=== PATIENT | female | born 1950 | race Caucasian/White ===

== ENCOUNTER 2019-02-03 05:39 | Inpatient (IN) | payer MEDICARE, BC ==
[2019-01-28 10:43] VITALS: BMI 21.0
[~2019-02-03] VITALS: Ht 162.6 cm; Wt 55.7 kg
[2019-02-03] VITALS (33 sets, daily range): BP systolic 109–172; BP diastolic 55–95; PULSE 56–88; RESP 10–26; Ht 162.6 cm; Wt 55.7 kg
[~2019-02-03 05:39] MED LIST: ATOR20TA38 PO; LANS30CA47 PO
[2019-02-03] MEDS ORDERED: LACTATED RINGER'S 1,000 ML IV* ONE (06:00)
[2019-02-03] MEDS ORDERED: CEFAZOLIN 2 GM/50 ML (PMX) 50 ML IVPB SCH (06:00)
[2019-02-03] MEDS ORDERED: PROPOFOL 200 MG INJ ONE (07:00)
[2019-02-03] MEDS ORDERED: LIDOCAINE 2% (SDV) 5 ML INJ ONE (07:00)
--- NOTE | 2019-02-03 07:02 | HPN ---
Date/Time of Note Date/Time of Note DATE: 02/03/19 TIME: 07:02 Interval H&P Admission Note Pt. seen H&P reviewed: No system changes MARION MEDRANO MD Feb 03, 2019 07:02
[2019-02-03] MEDS ORDERED: BUPIVACAINE 0.25% (MPF) 30 ML INJ ONE (07:03)
[2019-02-03] MEDS ORDERED: THROMBIN 5000 UNIT VIAL ONE (07:03)
[2019-02-03] MEDS ORDERED: GELATIN SIZE 100 SPONGE ONE (07:03)
[2019-02-03] MEDS ORDERED: POLYMYXIN/BACITRACIN 1L IRRIG ONE (07:03)
--- NOTE | 2019-02-03 07:25 | PREAC ---
Date/Time of Note Date/Time of Note DATE: 02/03/19 TIME: 07:23 Anesthesia Eval and Record Evaluation Time Pre-Procedure Interview DATE: 02/03/19 TIME: 07:23 Age 68 Sex female NPO: 8 hrs Preoperative diagnosis lumbar disc disease Planned procedure l3 to l5 lumbar discectomy, removal hardware Past Medical History Past Medical History: Includes Cardio: HTN, Dyslipidemia Endo: Hypothyroid Surgery & Anesthesia Issues No known issue Meds Anticoagulation: No Beta Clifton within 24 hr: No Reason Beta Clifton not given: Pt. not on B-Clifton Reported Medications Lansoprazole* (Prevacid*) 30 Mg Capsule.dr, 40 MG PO DAILY, CAP 01/28/19 Atorvastatin Calcium* (Atorvastatin Calcium*) 20 Mg Tablet, 20 MG PO QHS, #30 TAB 01/28/19 Current Medications Cefazolin Sodium/ Dextrose 50 ml @ 100 mls/hr PRE-OP IVPB Last administered on 02/03/19at 06:43; Admin Dose 100 MLS/HR; Start 02/03/19 at 06:00; Stop 02/03/19 at 15:00 Lactated Ringer's 1,000 ml @ 20 mls/hr Q24H ONCE IV* Last administered on 02/03/19at 06:44; Admin Dose 20 MLS/HR; Start 02/03/19 at 06:00; Stop 02/04/19 at 05:59 Meds reviewed: Yes Allergies Coded Allergies: No Known Drug Allergy (Verified Allergy, Unknown, 01/28/19) Allergies Reviewed: Yes Labs/Studies Labs Reviewed: Reviewed by anesthesiologist Blood Bank Test 02/03/19 05:39 Blood Product Summary Counts test: N/A Studies: ECG, CXR Pre-procedure Exam Last vitals Vital Signs Date Temp Pulse Resp B/P (MAP) Pulse Ox O2 O2 Flow FiO2 Time Delivery Rate 02/03/19 98.1 63 18 148/78 100 Room Air 06:18 (101) Airway: Adequate mouth opening, Adequate thyromental dist Mallampati: Mallampati I Teeth: Normal Lung: Normal Heart: Normal ASA Physical Status ASA physical status: 2 Emergency: None Planned Anesthetic General/MAC: ETT Planned Pain Management Parenteral pain med Pre-operative Attestations Prior to commencing anesthesia and surgery, the patient was re-evaluated, there was verification of: *The patient's identity *The results of appropriate recent lab work and preoperative vital signs *The above evaluation not changing prior to induction *Anesthetic plan, risk benefits, alternative and complications discussed with patient/family; questions answered; patient/family understands, accepts and wishes to proceed. KELVIN HOWARD Feb 03, 2019 07:25
[2019-02-03] MEDS ORDERED: PHENYLephrine (100 MCG/ML) 5ML SYG ONE (07:28)
[2019-02-03] MEDS ORDERED: DEXAMETHASONE 4 MG/ML 5 ML INJ ONE (07:39)
[2019-02-03] MEDS ORDERED: morphine 10 MG INJ ONE (08:04)
[2019-02-03] MEDS ORDERED: ONDANSETRON 4 MG INJ ONE (09:41)
[2019-02-03] MEDS ORDERED: GLYCOPYRROLATE 0.4 MG INJ ONE (10:09)
[2019-02-03] MEDS ORDERED: NEOSTIGMINE 3 MG/3 ML SYRINGE ONE (10:09)
[2019-02-03] MEDS ORDERED: HYDROmorphONE 1 MG/5 ML IV SYRINGE IV ONE (10:16)
--- NOTE | 2019-02-03 10:18 | PAC ---
Date/Time of Note Date/Time of Note DATE: 02/03/19 TIME: 10:18 Post-Anesthesia Notes Post-Anesthesia Note Last documented vital signs Vital Signs Date Temp Pulse Resp B/P (MAP) Pulse Ox O2 O2 Flow FiO2 Time Delivery Rate 02/03/19 98.1 63 18 148/78 100 Room Air 1018 (101) Activity: WNL Respiratory function: WNL Cardiovascular function: WNL Mental status: Baseline Pain reasonably controlled: Yes Hydration appropriate: Yes Nausea/Vomiting absent: Yes KELVIN HOWARD Feb 03, 2019 10:18
[2019-02-03] MEDS ORDERED: LABETALOL HCL 20MG INJ IV PRN (10:30)
[2019-02-03] MEDS ORDERED: MEPERIDINE 25 MG INJ IV PRN (10:30)
[2019-02-03] MEDS ORDERED: HYDROmorphONE 1 MG/5 ML IV SYRINGE IV PRN ×2 (10:30)
[2019-02-03] MEDS ORDERED: hydrALAzine 20 MG INJ IV PRN (10:30)
[2019-02-03] MEDS ORDERED: METOCLOPRAMIDE 10 MG INJ IV PRN (10:30)
[2019-02-03] MEDS ORDERED: MIDAZOLAM 1 MG/ML 2 ML INJ IV PRN (10:30)
[2019-02-03] MEDS ORDERED: OXYCODONE/ACETAMINOPHEN (5/325) TAB PO PRN ×2 (10:30)
[2019-02-03] MEDS ORDERED: DIPHENHYDRAMINE 50 MG INJ IV PRN (10:30)
[2019-02-03] MEDS ORDERED: EPHEDrine SULFATE 50 MG/5 ML SYG IV PRN (10:30)
[2019-02-03] MEDS ORDERED: FENTAnyl 50 MCG/ML VIAL IV PRN ×3 (10:30)
[2019-02-03] MEDS ORDERED: KETOROLAC 30 MG INJ IV PRN (10:30)
[2019-02-03] MEDS ORDERED: ONDANSETRON 4 MG INJ IV PRN ×2 (10:30→11:00)
[2019-02-03] MEDS ORDERED: ALBUTEROL 0.083% (NEB) 2.5 MG/3 ML AMP HHN PRN (10:30)
[2019-02-03] MEDS: DEXTROSE 5%-0.45% NACL 1,000 ML IV SCH ×3 (10:33→23:41)
[2019-02-03] MEDS: HYDROmorphONE 1 MG/5 ML IV SYRINGE IV PRN ×2 (10:38→11:01)
--- NOTE | 2019-02-03 10:44 | SIPON ---
Date/Time of Note Date/Time of Note DATE: 02/03/19 TIME: 10:39 Operative Report Preoperative Diagnosis Spinal Stenosis L3 Status post fusion L4-S1 with retained hardware Postoperative Diagnosis Same Operation/Procedure Performed Central decompressive laminectomy L3 Exploration of fusion L4-S1 bilaterally Removal of hardware L4-S1 bilaterally Revision of scar 12cm Lateral x-ray Intra-op nerve monitoring (3hrs) Surgeon see signature line video library assistant Caridad Townsend PA-C Anesthesia: general Estimated blood loss: 10 - 50 ml's Transfusion Required none Specimen Spinous process L3 Hardware (six pedicle screws, six locking caps, two rods) Grafts/Implants none Complications none MARION MEDRANO MD Feb 03, 2019 10:44
[2019-02-03] MEDS ORDERED: ACETAMINOPHEN 325 MG TAB PO PRN (11:00)
[2019-02-03] MEDS ORDERED: HYDROCODONE/APAP (5/325) TAB PO PRN ×2 (11:00)
[2019-02-03] MEDS ORDERED: DIAZEPAM 5 MG/ML SYG IM PRN (11:00)
[2019-02-03] MEDS ORDERED: NACL 0.9% 3 ML SYG IV SCH (11:00)
[2019-02-03] MEDS ORDERED: TRIMETHOBENZAMIDE 100 MG/ML VIAL IM PRN (11:00)
[2019-02-03] MEDS ORDERED: CEPASTAT LOZENGE MT PRN (11:00)
[2019-02-03] MEDS ORDERED: BETHANECHOL 25 MG TAB PO PRN (11:00)
[2019-02-03] MEDS ORDERED: DIPHENHYDRAMINE 50 MG CAP PO PRN (11:00)
[2019-02-03] MEDS ORDERED: HYDROmorphONE 0.2 MG/ML PCA IV SCH (11:00)
[2019-02-03] MEDS ORDERED: PROCHLORPERAZINE 10 MG TAB PO PRN (11:00)
[2019-02-03] MEDS ORDERED: AL HYDROX/MG HYDROX/SIMETH 30 ML CUP PO PRN (11:00)
[2019-02-03] MEDS ORDERED: NALOXONE (0.4 MG/ML) INJ IV PRN (11:00)
--- NOTE | 2019-02-03 11:16 | OPR ---
DATE OF OPERATION: 02/03/2019 PREOPERATIVE DIAGNOSIS: 1. Severe spinal stenosis at L3. 2. Status post lumbar fusion from L4 to the sacrum with bilateral pedicle screws and rods from L4 to the sacrum. POSTOPERATIVE DIAGNOSES: 1. Severe spinal stenosis at L3. 2. Status post lumbar fusion from L4 to the sacrum with bilateral pedicle screws and rods from L4 to the sacrum. OPERATIONS PERFORMED: 1. Central decompressive laminectomy at L3. 2. Exploration of spinal fusion L4 to the sacrum bilaterally. 3. Excision of the pedicle screws and rods from L4 to the sacrum bilaterally. 4. Revision of scar (12 cm). 5. Lateral localized lumbar radiograph. 6. Intraoperative nerve monitoring (3 hours). SURGEON: Smith Berger M.D. METAL SPRAYER PRODUCTION: Caridad Townsend PA-C. ANESTHESIA: General endotracheal. ANESTHESIOLOGIST: Dr. Welsh. ESTIMATED BLOOD LOSS: 25 to 30 mL. DRAINS: Two medium Hemovac drains employed. COMPLICATIONS: None. PERTINENT HISTORY AND PHYSICAL: This is a 68-year-old female who underwent an instrumented spinal fu ene by the undersigned from L4 to the sacrum many years ago and has done well over the years. Recen tly, she has had recurrent back pain with some radiation of pain into her lower extremities, which giles s been unrelieved by conservative management. She has undergone a number of diagnostic studies inclu ding MRI of the lumbar spine, which demonstrated severe stenosis at L3-L4, and retained hardware from L4 to the sacrum, which was tender to palpation. Treatment options discussed with the patient, she elected to proceed with surgery. OPERATIVE FINDINGS AT SURGERY: The patient had severe stenosis at L3. The baseline intraoperative n erve monitoring revealed decrease in the L2 potentials of 10% bilaterally, the L3 potentials 40% bila terally, the L4 potential on the left was down 40%, the L4 potential on the right was down 20%, the L 5 potential on the left was down 20% and the L5 potential on the right was down 20%. These all retur alethea to normal at the completion of the surgery. OPERATIVE PROCEDURE: With the patient in supine position after satisfactory induction of general end otracheal anesthesia by Dr. Welsh, the patient was turned to the prone kneeling position onto the [facility] frame. All pressure points were carefully padded. Back was prepped and draped in usual sterile fashion. Athrombic pumps were applied to legs below the knees to prevent venous stasis during and a fter procedure. An indwelling Berrios catheter was also placed preoperative to facilitate bladder drai nage during and after procedure. A 12 cm incision was carried out midline through the previous scar and extended superiorly approximat francesca 3 cm. The superficial retractors were placed and hemostasis secured with electrocautery. Throug hout the procedure, copious amounts of antibacterial irrigating solution used to periodically irrigat e the wound. The skin was infiltrated with 0.25% Marcaine without epinephrine for postoperative anal gesia. The spinous process of L3 was palpated and a subperiosteal dissection carried out at L3 bilat erally after the fascia was incised in the midline with a hot knife. Deep retractors were placed and deep hemostasis secured with electrocautery. A lateral lumbar radiograph was taken with a Jenna cl amp placed in what was felt to be the spinous process of L3. This was confirmed on the x-ray. The d issection was then carried distally, and the rods were exposed bilaterally with a hot knife. The Gel pi retractors were used to facilitate exposure. A Clarence right-angle bone rongeur was used to remov e the spinous process of L3 and a Leksell rongeur, Kerrison punches and curettes used to remove the r emaining lamina of L3. The operating microscope was then moved into place. A medial facetectomy and foraminotomy was accomplished at L3-L4 bilaterally using small hand osteotome, mallet, Kerrison punc hes and curettes. The ligamentum flavum was excised with sharp dissection. The epidural hemostasis was secured with bipolar electrocautery on low setting. At this point, the neural monitor confirmed that all of the initial nerve deficits had resolved. The Lanx screwdriver was then used to remove th e locking caps off of the top of the 6th pedicle screws at L4, L5 and S1 bilaterally. The rods were then pride loose, and sent to laboratory for pathologic study. The pedicle screws were then sequenti ally removed. The screws on the left were removed initially and then the screws on the right using t he Lanx screwdriver. No significant bleeding or CSF leak from the pedicle screw holes was identified . The wound was then closed in layers over 2 medium Hemovac drains, one below the fascia, one above the fascia, using #1 Stratafix suture in deep paralumbar musculature and deep fascia of back, 2-0 Str atafix sutures in subcutaneous tissue, and a 4-0 Vicryl subcuticular cosmetic closing suture on the s kin. Dermabond and sterile compressive dressings were applied. The patient tolerated procedure well , was then turned to the supine position onto her bed and extubated by Dr. Welsh. She was transported to the recovery room in a satisfactory condition. At the conclusion of the procedure, sponge, instr ument, and needle counts were all correct. NEED FOR ASSISTANT TO THE DIRECTOR: During this spinal surgical procedure, my observation assistant was used to retract and protect the spinal nerves and dural sac. My observation assistant also employed the suction catheters to ev acuate blood from the surgical field to improve visualization of the neural structures. The assistan t was medically necessary to facilitate the completion of the surgery in a safe and expeditious [facility] r. [facility] regulations, as well as hospital bylaws, preclude the use of non-licensed [facility] care personnel such as operating room technicians, to perform these functions. Throughout the procedure, neural monitoring was carried out by [employer] including EMG, SSEP a nd MEP monitoring of the L2, L3, L4, L5, and S1 nerve roots bilaterally along with spinal cord potent ials. These were interpreted in real time by Dr. Ramon. Dictated By: SMITH BERGER MD TM/NTS Conf#: [id number] DID#: [id number] CC: PAULINA MCCLAIN MD; SMITH BERGER MD;*End*
[2019-02-03] MEDS ORDERED: HYDROmorphONE 0.2 MG/ML PCA ONE (11:22)
[2019-02-03] MEDS: CEFAZOLIN 1 GM/50 ML (PMX) 50 ML IVPB SCH ×3 (12:17→23:41)
[2019-02-03] MEDS: DIAZEPAM 5 MG TAB PO PRN ×2 (12:43→17:26)
--- NOTE | 2019-02-03 14:10 | CONS ---
DATE OF ADMISSION: 02/03/2019 DATE OF CONSULTATION: TYPE OF CONSULTATION: Postoperative internal medicine. The patient had surgery with Dr. Smith Medrano on 02/03/2019. REASON FOR CONSULTATION: Consultation requested by Dr. Smith Medrano for postoperative medical evaluation and management of a 68-year-old woman who just underwent lumbar spine surgery. Thank you, Dr. Medrano, for allowing us to participate in the care of this patient. HISTORY OF PRESENT ILLNESS: Jennifer Bates, a 68-year-old woman who has had issues with back and had a prior lumbar spine fusion, currently underwent removal of hardware from her prior fusion as well as disk surgery at several levels, laminectomy of L3 as well as removal of hardware and is currently postop from that particular problem. In terms of her current medical condition, she is being treated for hyperlipidemia and for gastroesophageal reflux disease. MEDICATIONS: She is currently taking the following medications: 1. Atorvastatin 20 mg a day. 2. Prevacid 30 mg a day. 3. Occasional nonsteroidal anti-inflammatory which she used prior to her surgeries. ALLERGIES: SHE HAS NO ALLERGIES TO ANY MEDICATIONS PAST MEDICAL HISTORY: Other than the aforementioned lumbar spine surgery,had a vaginal hysterectomy and rotator cuff surgery on the right shoulder. Other than that, she has been relatively healthy and takes relatively good care of herself. SOCIAL HISTORY: Well documented in the patient's preoperative medical history and physical. FAMILY HISTORY: Well documented in the patient's preoperative medical history and physical. REVIEW OF SYSTEMS: Well documented in the patient's preoperative medical history and physical. PHYSICAL EXAMINATION: VITAL SIGNS: Currently, blood pressure 151/70, pulse of 70 and regular, respirations 14, temperature 97.9, pulse oximetry 98%. GENERAL: The patient was noted to be a well-developed, well-nourished female, alert, cooperative, in no apparent acute distress. She was oriented to time, place and person. HEENT: Head was atraumatic. Eyes: Pupils were equal. Nose was unremarkable. Mouth was unremarkable. Fair oral hygiene was present. NECK: Supple without any rigidity. Trachea was midline. Neck veins were flat. Carotid pulses were equal. CHEST: Symmetrical. LUNGS: Clear. HEART: PMI is 5th intercostal space at the midclavicular line. Regular sinus rhythm was noted. No obvious murmurs, rubs or gallops being elicited. ABDOMEN: Soft. Good bowel sounds were noted. No significant organomegaly, masses or tenderness. EXTREMITIES: Did not reveal any significant abnormalities. IMPRESSION: 1. Status post lumbar spine surgery. 2. Hyperlipidemia. 3. Gastroesophageal reflux disease. 4. Stable health. DISCUSSION: Review of laboratory and other data preoperatively within acceptable limits without any obviously abnormal values. I will follow the patient along with you and have taken the liberty of reordering her pre-op medications. We will also follow her along with you during her stay at [facility]. Thank you again, Dr. Medrano, for allowing us to participate in the care of this patient. Dictated By: PAULINA MCCLAIN MD SS/NTS Conf#: [id number] DID#: [id number] CC: SMITH MEDRANO MD;*EndCC* MTDD
[2019-02-03] MEDS ORDERED: ATORVASTATIN 20 MG TAB PO SCH (21:00)
[2019-02-03] MEDS ORDERED: ZOLPIDEM 5 MG TAB PO PRN (21:00)
[2019-02-03] MEDS: RANITIDINE 150 MG TAB PO SCH (21:31)
[2019-02-04 05:48] VITALS: BP 117/57; PULSE 62; RESP 18
[2019-02-04] MEDS: CEFAZOLIN 1 GM/50 ML (PMX) 50 ML IVPB SCH (06:05)
[2019-02-04] MEDS: DEXTROSE 5%-0.45% NACL 1,000 ML IV SCH (06:33)
--- NOTE | 2019-02-04 07:23 | PN ---
Date/Time of Note Date/Time of Note DATE: 02/04/19 TIME: 07:21 Assessment/Plan Lines/Catheters IV Catheter Type (from Nrsg): Peripheral IV Berrios in Place (from Nrsg): Yes Subjective 24 Hr Interval Summary The patient is postop day #1 following a decompressive laminectomy at L3, and removal of retained hardware from L4 to the sacrum bilaterally. She is resting comfortably in bed. Neurovascular structures are intact distally. She is afebrile. A.m. lab work is unremarkable. Her Hemovac had 45 cc since last night and was discontinued. Her wound is clean and dry and was redressed. Her Berrios catheter will be removed. She will be mobilized as tolerated by physical therapy, and possibly discharged home this afternoon if cleared. She has been given strict discharge precautions and instructions as well as follow-up arrangements. Her thyroid function tests were in the low normal range and I will defer to Dr. Rowell regarding those lab values Exam/Review of Systems Vital Signs Vitals Vital Signs Date Temp Pulse Resp B/P (MAP) Pulse Ox O2 O2 Flow FiO2 Time Delivery Rate 02/04/19 62 18 117/57 98 05:48 (77) 02/03/19 97.7 19:43 02/03/19 Nasal 2.0 18:45 Cannula Intake and Output 02/03/19 02/03/19 02/04/19 1515:00 23:00 07:00 IntakeIntake Total 1250 ml 500 ml 1750 ml OutputOutput Total 330 ml 300 ml 2545 ml BalanceBalance 920 ml 200 ml -795 ml Results Result Diagram: 02/04/19 0458 02/04/19 0458 MARION MEDRANO MD Feb 04, 2019 07:23
--- NOTE | 2019-02-04 07:59 | CONS ---
Consult Date/Type/Reason Admit Date/Time Feb 03, 2019 at 05:39 Initial Consult Date 02/03/2019 Type of Consultation: internal medicine Reason for Consultation post-op evaluation and medical management Requesting Provider: MARION MEDRANO MD Date/Time of Note DATE: 02/04/19 TIME: 07:51 Subjective feeling much better today no particular complaints was dizzy yesterday when she got out of bed Objective Vitals Vital Signs Date Temp Pulse Resp B/P (MAP) Pulse Ox O2 O2 Flow FiO2 Time Delivery Rate 02/04/19 62 18 117/57 98 05:48 (77) 02/03/19 97.7 19:43 02/03/19 Nasal 2.0 18:45 Cannula Intake and Output 02/03/19 02/03/19 02/04/19 1414:59 22:59 06:59 IntakeIntake Total 1250 ml 500 ml 1750 ml OutputOutput Total 330 ml 300 ml 2545 ml BalanceBalance 920 ml 200 ml -795 ml Exam vital signs stable HEENT negative lungs clear heart regular rhythm abdomen soft Results/Medications Result Diagram: 02/04/19 0458 02/04/19 0458 Results 24 hrs Laboratory Tests Test 02/04/19 04:58 Hemoglobin 11.6 L Hematocrit 34.4 L Sodium Level 138 Potassium Level 4.4 Chloride Level 105 Carbon Dioxide Level 29 Anion Gap 4 L Blood Urea Nitrogen 14 Creatinine 0.72 Est Glomerular Filtrat Rate mL/min > 60 Glucose Level 144 Calcium Level 9.0 Thyroid Stimulating Hormone (TSH) 0.519 Free Thyroxine 0.79 Home Meds Reported Medications Lansoprazole* (Prevacid*) 30 Mg Capsule.dr, 40 MG PO DAILY, CAP 01/28/19 Atorvastatin Calcium* (Atorvastatin Calcium*) 20 Mg Tablet, 20 MG PO QHS, #30 TAB 01/28/19 Medications Current Medications Dextrose/Sodium Chloride 1,000 ml @ 100 mls/hr Q10H IV Last administered on 02/03/19at 23:41; Admin Dose 100 MLS/HR; Start 02/03/19 at 10:33 Acetaminophen/ Hydrocodone Bitart (Murray (5/325)) 1 tab Q4H PRN PO .PAIN 1-5; Start 02/03/19 at 11:00; Status Hold Acetaminophen/ Hydrocodone Bitart (Murray (5/325)) 2 tab Q4H PRN PO .PAIN 6-10; Start 02/03/19 at 11:00; Status Hold Zolpidem Tartrate (Ambien) 5 mg HS PRN PO .INSOMNIA; Start 02/03/19 at 21:00 Prochlorperazine (Compazine) 10 mg Q4H PRN PO NAUSEA/VOMITING; Start 02/03/19 at 11:00 Trimethobenzamide HCl (Tigan) 200 mg Q4H PRN IM NAUSEA/VOMITING; Start 02/03/19 at 11:00 Ondansetron HCl (Zofran Inj) 4 mg Q6H PRN IV NAUSEA/VOMITING Last administered on 02/03/19at 12:47; Admin Dose 4 MG; Start 02/03/19 at 11:00 Al Hydrox/Mg Hydrox/Simethicone (Mag-Al Plus) 15 ml Q4H PRN PO .CONSTIPATION; Start 02/03/19 at 11:00 Docusate Sodium (Colace) 100 mg BID PO ; Start 02/04/19 at 09:00 Acetaminophen (Tylenol Tab) 650 mg Q4H PRN PO TEMP GREATER THAN 101F OR HARVEY; Start 02/03/19 at 11:00 Ascorbic Acid (Vitamin C) 1,000 mg BID PO ; Start 02/04/19 at 09:00 Ferrous Sulfate (Ferrous Sulfate (Ec)) 325 mg TID PO ; Start 02/04/19 at 09:00 Ranitidine HCl (Zantac) 150 mg BID PO Last administered on 02/03/19at 21:31; Admin Dose 150 MG; Start 02/03/19 at 21:00 Diazepam (Valium) 5 mg Q4H PRN PO .MUSCLE SPASM Last administered on 02/03/19at 17:26; Admin Dose 5 MG; Start 02/03/19 at 11:00 Diazepam (Valium) 5 mg Q4H PRN IM .MUSCLE SPASM; Start 02/03/19 at 11:00 Phenol (Cepastat Lozenge) 1 lozenge PRN PRN MT .SORE THROAT Last administered on 02/03/19at 12:44; Admin Dose 1 LOZENGE; Start 02/03/19 at 11:00 Diphenhydramine HCl (Benadryl) 50 mg Q6H PRN PO .PRURITUS; Start 02/03/19 at 11:00 IV Flush (NS 3 ml) 3 ml PER PROTOCOL IV ; Start 02/03/19 at 11:00 Hydromorphone HCl (Dilaudid ALLOCATION ANALYST) Q4PCA IV Last administered on 02/03/19at 11:46; Admin Dose 6 MG; Start 02/03/19 at 11:00 Naloxone HCl (Narcan) 0.2 mg Q2M PRN IV RR 8 BREATHS/MIN OR LESS; Start 02/03/19 at 11:00 Atorvastatin Calcium (Lipitor) 20 mg QHS PO Last administered on 02/03/19at 21:31; Admin Dose 20 MG; Start 02/03/19 at 21:00 Bethanechol Chloride (Urecholine) 25 mg PRN PRN PO UNABLE TO VOID; Start 02/04/19 at 08:00 Assessment/Plan Hospital Course (Demo Recall) patient post op removal of hardware and laminectomy doing well.Thyroid function test within normal limits medically stable Assessment/Plan (Daily) plan per dr medrano continue present medication and Rx per thank you [facility] PAULINA MCCLAIN MD Feb 04, 2019 07:59
[2019-02-04] MEDS ORDERED: BETHANECHOL 25 MG TAB PO PRN (08:00)
[2019-02-04] MEDS: RANITIDINE 150 MG TAB PO SCH (08:35)
[2019-02-04] MEDS: FERROUS SULFATE (EC) 325 MG TAB PO SCH ×2 (08:36→13:52)
[2019-02-04] MEDS ORDERED: DOCUSATE SODIUM 100 MG CAP PO SCH (09:00)
[2019-02-04] MEDS ORDERED: ASCORBIC ACID 500 MG TAB PO SCH (09:00)
[2019-02-04] MEDS ORDERED: HYDROCODONE/APAP (5/325) TAB PO PRN (09:45)
--- NOTE | 2019-02-10 09:02 | DS ---
Date/Time of Note Date/Time of Note DATE: 02/10/19 TIME: 09:01 Discharge Summary Admission/Discharge Info Admit Date/Time Feb 03, 2019 at 05:39 Discharge Date/Time Feb 04, 2019 at 14:47 Discharge Diagnosis 1. Severe spinal stenosis at L3. 2. Status post lumbar fusion from L4 to the sacrum with bilateral pedicle screws and rods from L4 to the sacrum. Patient Condition: Good Hospital Course Patient did well postoperatively. Pain was well controlled. Her diet and activity were advanced as tolerated. She was discharged home and condition on postop day #1 with strict discharge and follow-up instructions. Home Meds Reported Medications Lansoprazole* (Prevacid*) 30 Mg Capsule.dr, 40 MG PO DAILY, CAP 01/28/19 Atorvastatin Calcium* (Atorvastatin Calcium*) 20 Mg Tablet, 20 MG PO QHS, #30 TAB 01/28/19 Follow-up Plan Follow-up with Dr. Berger in 1-2 weeks. Primary Care Provider Not On Staff Doctor TERRELL HESTER Feb 10, 2019 09:02
== END 2019-02-04 14:47 | disposition home or self-care (01) | DRG 516 ==
LOC: REC 05:39 → MS1 11:59
PROVIDERS: ADMIT Orthopaedic Surgery; ATTEND Orthopaedic Surgery
PROC: 0SP004Z Removal of Internal Fixation Device from Lumbar Vertebral Joint, Open Approach (ICD-10-PCS; 2019-02-03)
PROC: 0SP304Z Removal of Internal Fixation Device from Lumbosacral Joint, Open Approach (ICD-10-PCS; 2019-02-03)
PROC: 01NB0ZZ Release Lumbar Nerve, Open Approach (ICD-10-PCS; principal; 2019-02-03 07:00)
DX: M48.061 Spinal stenosis, lumbar region without neurogenic claudication (principal); T84.84XA Pain due to internal orthopedic prosthetic devices, implants and grafts, initial encounter; Z98.1 Arthrodesis status; K21.9 Gastro-esophageal reflux disease without esophagitis; E78.5 Hyperlipidemia, unspecified; L90.5 Scar conditions and fibrosis of skin
CPT/HCPCS: 72020; 80048; 81003; 84439; 84443; 85014; 85018; 86850; 86900; 86901; 86920; 87086; 88300; 88304; 88311; 97116; 97162; 97530; J0690; J1100; J1170; J2270; J2370; J2405; J2710; J3010; J7042; J7120